=== PATIENT | female | born 1980 | race Caucasian/White ===

== ENCOUNTER 2022-01-15 08:42 | Day surgery (SDC) | payer OTHER ==
[2022-01-15] MEDS ORDERED: Decadron 4 MG INJ IV ONE (08:43)
[2022-01-15] MEDS ORDERED: LIDOCAINE HCL 2% 100 MG/5 ML IJ ONE (08:43)
[2022-01-15] MEDS ORDERED: DIPRIVAN 200 MG/20 ML IV ONE (10:42)
[2022-01-15] MEDS ORDERED: Lactated Ringers 1,000 ML IV ONE (10:52)
--- NOTE | 2022-01-15 12:18 | XRAY ---
Indication: Left C2-C4 MBB. Intraoperative fluoroscopy provided for 20 seconds. 3 digital spot images submitted for interpretation demonstrates posterior needle tips projecting over the expected left C2-C4 nerve roots. Correlate with intraoperative findings/report.
--- NOTE | 2022-01-15 13:51 | XRAY ---
20 seconds of fluoroscopy was used in surgery for a left C2-C4 MBB.
== END 2022-01-15 11:15 | disposition home or self-care (01) ==
LOC: SDC-PAIN 08:42
PROVIDERS: ATTEND Psychiatry & Neurology Pain Medicine
DX: M47.812 Spondylosis without myelopathy or radiculopathy, cervical region (principal); Z79.899 Other long term (current) drug therapy
CPT/HCPCS: 64490; 64491; 72040; 77002; 81025; J1100; J2704

== ENCOUNTER 2022-02-12 11:17 | Day surgery (SDC) | payer OTHER ==
[2022-02-12] MEDS ORDERED: Decadron 4 MG INJ IV ONE (11:18)
[2022-02-12] MEDS ORDERED: BUPIVACAINE 0.5% VIAL IJ ONE (11:18)
[2022-02-12] MEDS ORDERED: DIPRIVAN 200 MG/20 ML IV ONE (13:37)
--- NOTE | 2022-02-12 14:34 | XRAY ---
Indication: Left C2-C4 MBB. Intraoperative fluoroscopy provided for 33 seconds. 2 digital spot image submitted for interpretation demonstrates posterior needle tips projecting over the expected left C2-C4 nerve roots. Correlate with intraoperative findings/report.
--- NOTE | 2022-02-12 14:56 | XRAY ---
33 seconds of fluoroscopy was used in surgery for a left C2-C4 MBB.
[2022-02-12] MEDS ORDERED: Lactated Ringers 1,000 ML IV ONE (15:40)
== END 2022-02-12 14:10 | disposition home or self-care (01) ==
LOC: SDC-PAIN 11:17
PROVIDERS: ATTEND Psychiatry & Neurology Pain Medicine
DX: M47.812 Spondylosis without myelopathy or radiculopathy, cervical region (principal); Z79.899 Other long term (current) drug therapy
CPT/HCPCS: 64490; 64491; 72040; 77002; 81025; J1100; J2704

== ENCOUNTER 2022-04-02 07:40 | Day surgery (SDC) | payer OTHER ==
[2022-04-02] MEDS ORDERED: BUPIVACAINE 0.5% VIAL IJ ONE (07:41)
[2022-04-02] MEDS ORDERED: Decadron 4 MG INJ IV ONE (07:41)
[2022-04-02] MEDS ORDERED: LIDOCAINE HCL 1% 50 MG/5 ML VL PF IJ ONE (07:41)
[2022-04-02] MEDS ORDERED: DIPRIVAN 200 MG/20 ML IV ONE ×2 (08:49→09:02)
--- NOTE | 2022-04-02 10:05 | XRAY ---
Indication: Left C2-C4 RFA. Intraoperative fluoroscopy provided for 40 seconds. 4 digital spot image submitted for interpretation demonstrates posterior needle tips projecting over the expected left C2-C4 nerve roots. Correlate with intraoperative findings/report.
--- NOTE | 2022-04-02 11:36 | XRAY ---
40 seconds of fluoroscopy was used in surgery for a left C2-C4 RFA.
[2022-04-02] MEDS ORDERED: Lactated Ringers 1,000 ML IV ONE (13:52)
== END 2022-04-02 09:20 | disposition home or self-care (01) ==
LOC: SDC-PAIN 07:40
PROVIDERS: ATTEND Psychiatry & Neurology Pain Medicine
DX: M47.812 Spondylosis without myelopathy or radiculopathy, cervical region (principal); Z79.899 Other long term (current) drug therapy
CPT/HCPCS: 64635; 64636; 72040; 77002; 81025; J1100; J2001; J2704

== ENCOUNTER 2023-11-11 11:31 | Day surgery (SDC) | payer OTHER ==
[2023-11-11] MEDS ORDERED: LIDOCAINE HCL 1% AMPUL 5 ML IJ ONE (11:32)
[2023-11-11] MEDS ORDERED: BUPIVACAINE 0.5% VIAL IJ ONE (11:32)
[2023-11-11] MEDS ORDERED: Decadron 4 MG INJ IV ONE (11:32)
[2023-11-11 12:28] LABS: HCG URINE TEST NEGATIVE (NEGATIVE)
[2023-11-11] MEDS ORDERED: DIPRIVAN 200 MG/20 ML IV ONE ×2 (13:48→13:55)
[2023-11-11] MEDS ORDERED: Lactated Ringers 1,000 ML IV ONE (14:48)
--- NOTE | 2023-11-11 14:50 | XRAY ---
Indication: Left C2-C4 RFA. Intraoperative fluoroscopy provided for 23 seconds. 3 digital spot images submitted for interpretation demonstrates posterior needle tips projecting over the expected left C2-C4 nerve roots. Correlate with intraoperative findings/report.
--- NOTE | 2023-11-11 15:00 | XRAY ---
23 seconds of fluoroscopy was used in surgery for a left C2-C4 RFA.
== END 2023-11-11 14:29 | disposition home or self-care (01) ==
LOC: SDC-PAIN 11:31
PROVIDERS: ATTEND Psychiatry & Neurology Pain Medicine
DX: M47.812 Spondylosis without myelopathy or radiculopathy, cervical region (principal)
CPT/HCPCS: 64633; 64634; 72040; 77002; 81025; J1100; J2704